=== PATIENT | female | born 1950 | race Caucasian/White ===

== ENCOUNTER 2018-06-25 19:28 | Emergency (ER) | payer OTHER ==
[2018-06-25 19:38] VITALS: BP 128/41; PULSE 69; TEMP 98.2; BMI 33.5
--- NOTE | 2018-06-25 20:13 | PDOC ---
History of Present Illness - General Chief Complaint: Respiratory Stated Complaint: COUGHING Time Seen by Provider: 06/25/18 19:46 - History of Present Illness Initial Comments: 06/25/18 20:10 68-year-old female with cough and intermittent headache 2 weeks self medicated at home with amoxicillin and was treated with a Z-Ubaldo without any relief. Past History - Past Medical History Allergies/Adverse Reactions: Allergies Allergy/AdvReac Type Severity Reaction Status Date / Time No Known Allergies Allergy Verified 06/25/18 19:38 Home Medications: Ambulatory Orders Amox-Tr/K Cl [Augmentin - 875Mg Tablet] 1 tab PO BID #20 tablet 06/25/18 COPD: No - Suicide/Smoking/Psychosocial Hx Smoking History: Never smoked Have you smoked in the past 12 months: No Information on smoking cessation initiated: No Hx Alcohol Use: No Drug/Substance Use Hx: No Review of Systems - Review of Systems Constitutional: No: Fever Respiratory: Yes: Cough, Orthopnea Neurological: Yes: Headache *Physical Exam - Vital Signs Last Vital Signs Temp Pulse Resp BP Pulse Ox 98.2 F 69 16 128/41 L 99 06/25/18 19:36 06/25/18 19:36 06/25/18 19:36 06/25/18 19:36 06/25/18 19:36 - Physical Exam Comments: 06/25/18 20:12 HEAD: NC/AT EYES: Conjuntiva clear Ears: Canals and TM's normal NOSE: No d/c THROAT: Moist mucous membrances, oral pharanx clear, uvula midline NECK: Supple without adenopathy CARDIAC: S1 S2 LUNGS: CTA Full and Equal breath sounds ABDOMEN: Soft NT ND MS: Full ROM in all joints without edema NEUROLOGIC: No gross sensory or motor deficits, NVID SKIN: Normal color and temperature no lesions or rashes Moderate Sedation - Procedure Monitoring Vital Signs: Procedure Monitoring Vital Signs Temperature 98.2 F 06/25/18 19:36 Pulse Rate 69 06/25/18 19:36 Respiratory Rate 16 06/25/18 19:36 Blood Pressure 128/41 L 06/25/18 19:36 O2 Sat by Pulse Oximetry (%) 99 06/25/18 19:36 ED Treatment Course - RADIOLOGY Radiology Studies Ordered: Category Date Time Status CHEST PA & LAT [RAD] Stat Radiology 06/25/18 20:02 Ordered Medical Decision Making - Medical Decision Making 06/25/18 20:23 There is a questionable retrocardial infiltrate. I will treat her for for pneumonia with Augmentin *DC/Admit/Observation/Transfer Diagnosis at time of Disposition: Pneumonia - Discharge Dispostion Disposition: HOME Condition at time of disposition: Stable Decision to Admit order: No - Referrals Referrals: Tanvir Velazquez MD [Primary Care Provider] - - Patient Instructions Printed Discharge Instructions: DI for Pneumonia -- Adult Additional Instructions: Leese take the antibiotics as directed and finish the entire course. Follow-up with your primary care physician in one to 2 days for further evaluation and treatment options. Tylenol for headache as directed. Avoid anti-inflammatories such as Advil Motrin Aleve and ibuprofen. - Post Discharge Activity
== END 2018-06-25 20:35 | disposition home or self-care (01) ==
LOC: JERFT 19:28
DX: J18.9 Pneumonia, unspecified organism (principal)
CPT/HCPCS: 71046-TC-FY; 99281-25